=== PATIENT | male | born 2005 | race Hispanic/Latino ===

== ENCOUNTER → 2023-03-14 | Outpatient (CLI) | payer MEDICAID | END | disposition home or self-care (01) | LOC: RAH 15:37 | PROVIDERS: ATTEND Physical Medicine & Rehabilitation | DX: S22.009A Unspecified fracture of unspecified thoracic vertebra, initial encounter for closed fracture (principal); S32.009A Unspecified fracture of unspecified lumbar vertebra, initial encounter for closed fracture; M99.02 Segmental and somatic dysfunction of thoracic region; X58.XXXA Exposure to other specified factors, initial encounter; Y93.89 Activity, other specified; Y92.89 Other specified places as the place of occurrence of the external cause; Y99.8 Other external cause status | CPT/HCPCS: 72072 ==